=== PATIENT | male | born 1980 | race Asian ===

== ENCOUNTER 2023-02-20 06:41 | Emergency (ER) | payer OTHER ==
[~2023-02-20] VITALS: Ht 170.2 cm; Wt 63.5 kg
== END 2023-02-20 07:18 | disposition home or self-care (01) ==
LOC: ED 06:41
DX: H01.006 Unspecified blepharitis left eye, unspecified eyelid (principal); H01.003 Unspecified blepharitis right eye, unspecified eyelid
CPT/HCPCS: 99281